=== PATIENT | female | born 1980 | race Caucasian/White ===

== ENCOUNTER 2019-01-22 23:21 | Emergency (ER) | payer OTHER ==
[~2019-01-22] VITALS: Ht 165.1 cm; Wt 96.0 kg
[~2019-01-22 23:21] MED LIST: HYDR-4011 PO; ONDA4TAB14 PO
[2019-01-22 23:24] VITALS: Ht 165.1 cm; Wt 96.0 kg
--- NOTE | 2019-01-22 23:48 | ERD ---
ER Documentation Chief Complaint Chief Complaint C/O EPIGASTRIC PAIN X3 HRS HPI The patient is a 38-year-old female, presenting to the ER because of epigastric abdominal pain that began around 830 pm after eating, denies nausea, vomiting, dysuria, diarrhea, constipation. She denies similar symptoms previously, denies neck pain, chest pain, dyspnea. She smokes socially, denies drinking Past medical history: Hypertension Past surgical history: Hysterectomy ROS All systems reviewed and are negative except as per history of present illness. Medications Home Meds Active Scripts Ondansetron (Ondansetron Odt) 4 Mg Tab.rapdis, 4 MG PO Q6H PRN for NAUSEA AND/OR VOMITING, #10 TAB Prov:JEFF SOLIS MD 01/23/19 Hydrocodone/Acetaminophen (Lindsay 5-325 Tablet) 1 Each Tablet, 1 TAB PO Q6H PRN for PAIN, #7 TAB Prov:JEFF SOLIS MD 01/23/19 Allergies Allergies: Coded Allergies: No Known Allergy (Unverified , 01/22/19) Physical Exam Vitals Vital Signs Date Temp Pulse Resp B/P (MAP) Pulse Ox O2 O2 Flow FiO2 Time Delivery Rate 01/23/19 98.4 67 20 118/87 98 Room Air 03:00 (97) 01/23/19 67 16 124/95 99 Room Air 01:40 (105) 01/23/19 74 16 112/73 99 00:47 (86) 01/22/19 98.1 81 19 118/75 100 23:24 (89) Physical Exam Const: No acute distress. Head: Atraumatic. Eyes: Normal Conjunctiva. ENT: Normal External Ears, Nose and Mouth. Neck: Full range of motion. No meningismus. Resp: Clear to auscultation bilaterally. Cardio: Regular rate and rhythm. Abd: Soft, non distended, normal bowel sounds, mild epigastric and right upper quadrant tenderness, no right lower quadrant/rigidity/rebound/CVA tenderness Skin: No petechiae or rashes. Back: No midline or flank tenderness. Ext: No cyanosis, or edema. Neur: Awake and alert. No focal deficit Psych: Normal Mood and Affect. Result Diagram: 01/23/19 0001 01/23/19 0001 Results 24 hrs Laboratory Tests Test 01/23/19 00:01 01/23/19 00:02 White Blood Count 7.8 10^3/ul Red Blood Count 4.31 10^6/ul Hemoglobin 12.4 g/dl Hematocrit 38.2 % Mean Corpuscular Volume 88.6 fl Mean Corpuscular Hemoglobin 28.8 pg Mean Corpuscular Hemoglobin Concent 32.5 g/dl Red Cell Distribution Width 12.5 % Platelet Count 260 10^3/UL Mean Platelet Volume 9.4 fl Immature Granulocytes % 0.300 % Neutrophils % 50.3 % Lymphocytes % 37.2 % Monocytes % 9.6 % Eosinophils % 2.2 % Basophils % 0.4 % Nucleated Red Blood Cells % 0.0 /100WBC Immature Granulocytes # 0.020 10^3/ul Neutrophils # 3.9 10^3/ul Lymphocytes # 2.9 10^3/ul Monocytes # 0.8 10^3/ul Eosinophils # 0.2 10^3/ul Basophils # 0.0 10^3/ul Nucleated Red Blood Cells # 0.0 10^3/ul Sodium Level 138 mmol/L Potassium Level 3.9 mmol/L Chloride Level 103 mmol/L Carbon Dioxide Level 29 mmol/L Anion Gap 6 Blood Urea Nitrogen 20 mg/dl Creatinine 0.56 mg/dl Est Glomerular Filtrat Rate mL/min > 60 mL/min Glucose Level 103 mg/dl Calcium Level 8.9 mg/dl Total Bilirubin 0.2 mg/dl Direct Bilirubin 0.00 mg/dl Indirect Bilirubin 0.2 mg/dl Aspartate Amino Transf (AST/SGOT) 18 IU/L Alanine Aminotransferase (ALT/SGPT) 27 IU/L Alkaline Phosphatase 62 IU/L Total Protein 7.5 g/dl Albumin 4.2 g/dl Globulin 3.30 g/dl Albumin/Globulin Ratio 1.27 Lipase 136 U/L Bedside Urine pH (LAB) 6.0 Bedside Urine Protein (LAB) Trace Bedside Urine Glucose (UA) Negative Bedside Urine Ketones (LAB) Negative Bedside Urine Blood Negative Bedside Urine Nitrite (LAB) Negative Bedside Urine Leukocyte Esterase (L Negative Current Medications Medications Dose Sig/[place]ora Start Time Status Last (Trade) Ordered Route PRN Stop Time Admin Dose Reason Admin Sodium 1,000 ml @ Q1H STAT 01/22/19 DC 01/23/19 Chloride 1,000 mls/hr IV 23:53 00:02 01/23/19 00:52 Ketorolac 15 mg ONCE STAT 01/22/19 DC 01/23/19 Tromethamine IV 23:53 00:06 (Toradol) 01/22/19 23:55 Famotidine 20 mg ONCE ONCE 01/23/19 DC 01/23/19 (Pepcid Iv) IV 00:00 00:06 01/23/19 00:01 Morphine 2 mg ONCE ONCE 01/23/19 DC 01/23/19 Sulfate IV 00:38 00:42 (morphine) 01/23/19 00:39 Ondansetron 4 mg ONCE ONCE 01/23/19 DC 01/23/19 HCl (Zofran IV 00:38 00:42 Inj) 01/23/19 00:39 Sodium 1,000 ml @ Q1H ONCE 01/23/19 DC 01/23/19 Chloride 1,000 mls/hr IV 01:30 01:36 01/23/19 02:29 Ondansetron 4 mg ONCE STAT 01/23/19 DC 01/23/19 HCl (Zofran IV 01:14 01:36 Inj) 01/23/19 01:15 0.5 mg ONCE STAT 01/23/19 DC 01/23/19 Hydromorphone IV 01:14 01:35 HCl 01/23/19 01:15 (Dilaudid) 0.5 mg ONCE STAT 01/23/19 DC 01/23/19 Hydromorphone IV 02:35 02:50 HCl 01/23/19 02:36 (Dilaudid) Procedures/[place] [id number] Radiology Main Line: [phone] DIAGNOSTIC IMAGING REPORT Patient: NIALL PALACIOS : 1980 Age: 38 Sex: F MR #: [id number] DOS: 01/23/19 1893 Ordering MD: JEFF SOLIS MD Location: E/R Room/Bed: PROCEDURE: US Abdomen (right upper quadrant). CLINICAL INDICATION: Right upper quadrant abdomen pain. TECHNIQUE: Multiple real-time longitudinal and transverse images of the right upper quadrant of the abdomen were acquired utilizing a curved array transducer. Images were reviewed on a high-resolution PACS workstation. COMPARISON: None FINDINGS: The liver is enlarged and diffusely increased in echogenicity. There is no focal hepatic lesion. Color Doppler and pulsed Doppler sonography demonstrate normal antegrade flow in the portal vein. The gallbladder contains multiple gallstones. There is no gallbladder wall thickening or fluid around the gallbladder. The bile ducts are normal with the common bile duct measuring 3.6 mm in di ameter. The visualized portions of the pancreas are unremarkable with obscuration of the tail of the pancreas. No free fluid is present. The right kidney measures 12.6 cm. There is normal echogenicity of the right kidney. There is no right renal mass, hydronephrosis, or calculus. IMPRESSION: 1. Hepatomegaly. 2. Fatty metamorphosis of the liver. 3. Gallstones in the gallbladder. No evidence of cholecystitis. 4. Otherwise unremarkable right upper quadrant abdomen ultrasound. RPTAT: QQ .Esdras Kumar MD, MD Date Time Electronically viewed and signed by .Esdras Kumar MD, MD on 01/23/2019 00:58 .R/ CC: JEFF SOLIS MD [id number] MEDICAL MAKING DECISION: The patient is a 38-year-old female, presenting with acute biliary colic, was treated with 2 L normal saline for clinical dehydration, Toradol 30 mg IV, morphine 2 mg IV and Dilaudid 0.5 mg IV x2 for pain and Zofran 4 mg IV x2 for nausea with good response, is stable for outpatient follow-up The differential diagnoses considered include but are not limited to cholelithiasis, cholecystitis, choledocholithiasis, cholangitis, pancreatitis, hepatitis, gastritis, peptic ulcer disease, gastric ulcer, appendicitis, cystitis, diverticulitis, partial small bowel obstruction. Departure Diagnosis: Primary Impression: Biliary colic Additional Impression: Hepatic steatosis Condition: Good Comments She was discharged with Lindsay and Zofran I discussed the findings with the patient. I advised the patient to follow-up with the local surgeon Dr Burrell in about 1-2 days, sooner if needed and return if any concern. Disclaimer: Inadvertent spelling and grammatical errors are likely due to EHR/dictation software use and do not reflect on the overall quality of patient care. Also, please note that the electronic time recorded on this note does not necessarily reflect the actual time of the patient encounter. JEFF SOLIS MD Jan 22, 2019 23:47
[2019-01-22] MEDS ORDERED: SOD CHLORIDE 0.9% 1,000 ML IV STA (23:53)
[2019-01-22] MEDS ORDERED: KETOROLAC 15 MG INJ IV STA (23:53)
[2019-01-23] MEDS ORDERED: FAMOTIDINE 20 MG INJ IV ONE
[2019-01-23] MEDS ORDERED: morphine 2 MG INJ IV ONE (00:38)
[2019-01-23] MEDS ORDERED: ONDANSETRON 4 MG INJ IV ONE (00:38)
[2019-01-23] MEDS ORDERED: ONDANSETRON 4 MG INJ IV STA (01:14)
[2019-01-23] MEDS ORDERED: HYDROmorphONE 0.5 MG/0.5 ML SYG IV STA ×2 (01:14→02:35)
[2019-01-23] MEDS ORDERED: SOD CHLORIDE 0.9% 1,000 ML IV ONE (01:30)
[2019-01-23 03:00] VITALS: BP 118/87; PULSE 67; RESP 20
== END 2019-01-23 03:14 | disposition home or self-care (01) ==
LOC: E/R 23:21
DX: K80.20 Calculus of gallbladder without cholecystitis without obstruction (principal); I10 Essential (primary) hypertension; K76.0 Fatty (change of) liver, not elsewhere classified
CPT/HCPCS: 76705; 80053; 81003; 83690; 85025; J1170; J1885; J2270; J2405; J7030; Z7610; 36415; 96374; 96375; 96376

== ENCOUNTER 2019-02-07 22:40 | Inpatient (IN) | payer OTHER ==
[~2019-02-07] VITALS: Ht 165.1 cm; Wt 98.4 kg
[~2019-02-07 22:40] MED LIST changes: +DOCU-144 PO
[2019-02-07] MEDS ORDERED: SOD CHLORIDE 0.9% 1,000 ML IV STA (23:10)
[2019-02-07] MEDS ORDERED: HYDROmorphONE 1 MG/ML SYG IV STA (23:10)
[2019-02-07] MEDS ORDERED: ONDANSETRON 4 MG INJ IV STA (23:10)
[2019-02-08] VITALS (15 sets, daily range): BP systolic 98–118; BP diastolic 58–82; PULSE 65–92; RESP 12–25; Ht 165.1 cm; Wt 98.4 kg
[2019-02-08] MEDS ORDERED: KETOROLAC 15 MG INJ IV ONE (01:50)
[2019-02-08] MEDS ORDERED: HYDROCODONE/APAP (5/325) TAB PO PRN (03:30)
[2019-02-08] MEDS ORDERED: KETOROLAC 15 MG INJ IV STA (03:31)
[2019-02-08] MEDS ORDERED: HYDROmorphONE 0.5 MG/0.5 ML SYG IV STA (03:34)
[2019-02-08] MEDS ORDERED: HYDROmorphONE 2 MG TAB PO PRN (04:00)
[2019-02-08] MEDS ORDERED: NACL 0.9% 3 ML SYG IV SCH (04:00)
[2019-02-08] MEDS ORDERED: DOCUSATE SODIUM 100 MG CAP PO PRN (04:00)
[2019-02-08] MEDS ORDERED: ACETAMINOPHEN 325 MG TAB PO PRN (04:00)
[2019-02-08] MEDS ORDERED: ONDANSETRON 4 MG INJ IV PRN ×3 (04:00→15:30)
[2019-02-08] MEDS ORDERED: PIPER-TAZO 3.375 GM IV (PMX) 100 ML IVPB ONE ×2 (04:00)
[2019-02-08] MEDS ORDERED: DEXTROSE 5%-0.9% NACL 1,000 ML IV SCH (04:00)
[2019-02-08] MEDS: morphine 2 MG INJ IV PRN ×7 (04:09→20:55)
[2019-02-08] MEDS: FAMOTIDINE 20 MG INJ IV SCH ×2 (05:00→20:53)
[2019-02-08] MEDS ORDERED: PIPER-TAZO 3.375 GM IV (PMX) 100 ML IVPB SCH (06:00)
[2019-02-08] MEDS: HEPARIN 5,000 UNIT/1 ML VIAL SC SCH ×3 (06:32→21:05)
[2019-02-08] MEDS: PIPER-TAZO 3.375 GM IV (PMX) 100 ML IVPB SCH ×3 (12:00→23:36)
[2019-02-08] MEDS ORDERED: BUPIVACAINE 0.25% (MPF) 30 ML INJ ONE (12:58)
[2019-02-08] MEDS ORDERED: MIDAZOLAM 1 MG/ML 2 ML INJ ONE (13:26)
[2019-02-08] MEDS ORDERED: SEVOFLURANE 15 MIN ONE (13:26)
[2019-02-08] MEDS: NICOTINE (14 MG/24 HR) PATCH TRANSDERM SCH (13:30)
[2019-02-08] MEDS ORDERED: ONDANSETRON 4 MG INJ ONE (14:40)
[2019-02-08] MEDS ORDERED: GLYCOPYRROLATE 0.4 MG INJ ONE (14:40)
[2019-02-08] MEDS ORDERED: ROCURONIUM 50 MG INJ ONE (14:40)
[2019-02-08] MEDS ORDERED: LIDOCAINE 2% (SDV) 5 ML INJ ONE (14:40)
[2019-02-08] MEDS ORDERED: PROPOFOL 20 ML ONE (14:40)
[2019-02-08] MEDS ORDERED: NEOSTIGMINE 3 MG/3 ML SYRINGE ONE (14:40)
[2019-02-08] MEDS ORDERED: ROPIVACAINE 0.5 % 30 ML VIAL ONE (14:41)
[2019-02-08] MEDS ORDERED: KETOROLAC 30 MG INJ ONE (15:01)
[2019-02-08] MEDS ORDERED: FENTAnyl 50 MCG/ML VIAL ONE ×2 (15:13→15:23)
[2019-02-08] MEDS ORDERED: MEPERIDINE 25 MG INJ ONE (15:14)
[2019-02-08] MEDS ORDERED: HYDROmorphONE 1 MG/5 ML IV SYRINGE IV ONE (15:14)
[2019-02-08] MEDS ORDERED: DIPHENHYDRAMINE 50 MG INJ ONE (15:23)
[2019-02-08] MEDS ORDERED: KETOROLAC 30 MG INJ IV PRN (15:30)
[2019-02-08] MEDS ORDERED: FENTAnyl 50 MCG/ML VIAL IV PRN (15:30)
[2019-02-08] MEDS ORDERED: MEPERIDINE 25 MG INJ IV PRN (15:30)
[2019-02-08] MEDS ORDERED: LABETALOL HCL 20MG INJ IV PRN (15:30)
[2019-02-08] MEDS ORDERED: hydrALAzine 20 MG INJ IV PRN (15:30)
[2019-02-08] MEDS ORDERED: METOCLOPRAMIDE 10 MG INJ IV PRN (15:30)
[2019-02-08] MEDS ORDERED: DIPHENHYDRAMINE 50 MG INJ IV PRN (15:30)
[2019-02-08] MEDS ORDERED: HYDROmorphONE 1 MG/5 ML IV SYRINGE IV PRN ×2 (15:30)
[2019-02-08] MEDS: D5W-0.45 NACL + KCL 20 MEQ 1,000 ML IV SCH (16:38)
[2019-02-08] MEDS: KETOROLAC 30 MG INJ IV PRN (21:54)
[2019-02-09 01:19] VITALS: BP 93/52; PULSE 64; RESP 18
[2019-02-09] MEDS: D5W-0.45 NACL + KCL 20 MEQ 1,000 ML IV SCH ×2 (03:16→10:12)
[2019-02-09] MEDS: morphine 2 MG INJ IV PRN ×5 (03:16→15:15)
[2019-02-09] MEDS: PIPER-TAZO 3.375 GM IV (PMX) 100 ML IVPB SCH ×2 (05:13→12:10)
[2019-02-09] MEDS: HEPARIN 5,000 UNIT/1 ML VIAL SC SCH ×2 (05:17→13:11)
[2019-02-09] MEDS: KETOROLAC 30 MG INJ IV PRN ×2 (07:26→13:53)
[2019-02-09 07:45] VITALS: BP 105/56; PULSE 63; RESP 18
[2019-02-09] MEDS: FAMOTIDINE 20 MG INJ IV SCH (08:43)
[2019-02-09] MEDS: NICOTINE (14 MG/24 HR) PATCH TRANSDERM SCH (08:44)
[2019-02-09 15:00] VITALS: BP 112/58; PULSE 65; RESP 18
== END 2019-02-09 17:12 | disposition home or self-care (01) | DRG 419 ==
LOC: E/R 22:40 → 2NE 02-08 03:36
PROVIDERS: ADMIT Internal Medicine; ATTEND Internal Medicine
PROC: 0FT44ZZ Resection of Gallbladder, Percutaneous Endoscopic Approach (ICD-10-PCS; principal; 2019-02-08 13:30)
DX: K80.00 Calculus of gallbladder with acute cholecystitis without obstruction (principal); K76.0 Fatty (change of) liver, not elsewhere classified; I10 Essential (primary) hypertension; M54.5 Low back pain; F17.200 Nicotine dependence, unspecified, uncomplicated; Z90.710 Acquired absence of both cervix and uterus; Z86.010 Personal history of colon polyps
CPT/HCPCS: 36415; 76705; 80053; 81003; 81025; 83036; 83690; 84436; 84479; 84484; 85025; 85610; 85730; 86850; 86900; 86901; 88304; 93005; 96374; 96375; J1170; J1200; J1644; J1885; J2175; J2250; J2270; J2405; J2543; J2710; J2795; J3010; J3480; J7030; J7042